=== PATIENT | female | born 1975 | race Caucasian/White ===

== ENCOUNTER 2017-04-20 11:15 | Inpatient (IN) ==
[2017-04-20] MEDS ORDERED: *HR* HYDROmorphone (PF) 1 MG/ML SYRINGE IVP PRN (12:41)
[2017-04-20] MEDS ORDERED: Ondansetron 4 MG/2 ML VIAL IVP PRN (12:42)
[2017-04-20] MEDS ORDERED: *HR* Promethazine 25 MG/ML VIAL IVP PRN (12:42)
[2017-04-20] MEDS: 0.9 % Sodium Chloride 1,000 ML IVC SCH ×2 (12:56→21:06)
[2017-04-20] MEDS ORDERED: Naloxone 0.4 MG/ML INJ IVP PRN (13:02)
[2017-04-20] MEDS ORDERED: *HR* OxyCODONE Immed Rel 5 MG TABLET PO PRN (13:02)
--- NOTE | 2017-04-20 13:20 | Internal Med History&Physical ---
Date of Encounter: 04/20/17 Time of Encounter: 13:15 Assessment and Plan (1) Pyelonephritis Current visit: Yes Status: Acute Patient had bilateral ureteral calculi removed yesterday with bilateral ureteral stents placed. She had hydronephrosis and UTI. Today with increased pain, nausea, vomiting, and increased WBC count. IV rocephin daily. IV fluids 0.9NS at 125mL/hr Consulted Urology. (2) Nausea and vomiting Current visit: Yes Status: Acute Patient reports nausea and vomiting since yesterday, unable to keep anything down. Likely secondary to UTI and bilateral ureteral stent placement yesterday. CT abdomen just showed interval placement of bilateral ureteral stents. clear liquid diet, advance as tolerated. IV fluids 0.9NS at 125mL/hr zofran and phenergan PRN for nausea. Qualifiers: Vomiting type: bilious vomiting Qualified Code(s): R11.14 - Bilious vomiting (3) Abdominal pain Current visit: Yes Status: Acute Patient reporting bilateral flank pain radiating around to her abdomen. She is diffusely tender. cT of abdomen and pelvis shows interval placement of ureteral stents, no calculus and no hydronephrosis. PRN oxycodone and dilaudid for pain Narcan prn for respiratory depression. Qualifiers: Abdominal location: lower abdomen, unspecified Qualified Code(s): R10.30 - Lower abdominal pain, unspecified (4) DVT prophylaxis Current visit: Yes Status: Acute sequential compression devices. Internal Medicine - H&P: HPI Chief complaint: N/V/ abdominal pain Admitted From: Hospital to Hospital Transfer Plans for Post Hospital Care: Home History of present illness: Ms. Gil is a 42 year old female , hyperlipidemia, fibromyalgia, history of kidney stones presented to the emergency department today with complaints of nausea, vomiting, abdominal pain after undergoing bilateral kidney stone extraction and bilateral ureteral stent placement yesterday as an outpatient. Patient reports that her pain has been worsening over time, she describes it as severe, constant, cramping and sharp pain, she states that it was worse on her left yesterday but now it is worse on the right. Pain medicine given in [facility] relieved the pain temporarily. Patient also reports nausea and vomiting and inability to keep anything down. She reports headache, denies any lightheadedness chest pain, palpitations, shortness of breath. She reports mild mild bilateral feet swelling. She reports subjective fever, chills and sweats. Evaluation in the [facility] revealed elevated white blood cell count of 21.5. Creatinine was mildly elevated at 1.19. Lactate was normal at 1.4. Abdomen and pelvis CT showed interval placement of bilateral ureteral stents, no ureteral calculus and no hydronephrosis. On exam, patient alert and oriented , appears in distress due to pain. Heart is regular rate and rhythm, lungs are clear bilaterally to auscultation. Abdomen is soft, diffusely tender to palpation. Past Med Surg Social Fam HX - Past Medical History Medical history: fibromyalgia, hyperlipidemia, kidney stones, migraine Psychiatric history: anxiety, depression - Past Surgical History Surgical History: appendectomy - Social History Smoking Status: Never smoker Smokeless Tobacco Status: No Alcohol use: none Drug use: none - Family History Son Age: 18 Living Status: Still Living Hx Family Cardiac Disorders: No Hx Family Respiratory Disorders: No Hx Family Cancer: No Hx Family GI Disorders: No Hx Family Genitourinary Disorders: No Hx Family Endocrine Disorder: No Hx Family Musculoskeletal Disorders: No Hx Family Neuromuscular Disorders: No Hx Family Neurologic Disorders: No Hx Family HEENT Disorders: No Hx Family Autoimmune Disorders: No Hx Family Reproductive Disorders: No Hx Family Psychosocial Disorders: No Hx Family Medical Disorders: No Internal Medicine - H&P: Meds Propranolol LA (24 HR) [Inderal LA] 80 mg PO DAILY 04/29/15 [History] raNITIdine HCl [Ranitidine HCl] 150 mg PO BID 04/29/15 [History] Cyclobenzaprine HCl 10 mg PO TID 08/10/16 [History] Simvastatin [Zocor] 20 mg PO QPM 08/10/16 [History] Trazodone HCl 100 mg PO HS 08/10/16 [History] Nitrofurantoin Monohyd/M-Cryst [Macrobid 100 mg Capsule] 100 mg PO BID #20 capsule 04/17/17 [Rx] OxyCODONE/APAP 5/325 [Percocet 5/325 MG] 1 each PO Q6HR PRN #20 tablet 04/17/17 [Rx] Promethazine [Phenergan] 25 mg PO Q6HR #20 tablet 04/17/17 [Rx] Phenazopyridine HCl [Pyridium] 200 mg PO TIDAC PRN #20 tab 04/19/17 [Rx] Tramadol HCl [Ultram] 50 mg PO QID PRN #20 tab 04/19/17 [Rx] Allergies hydrocodone [From Vicodin] Allergy (Verified 04/17/17 06:18) Hives latex Allergy (Verified 04/17/17 06:18) Hives Sulfa (Sulfonamide Antibiotics) Allergy (Verified 04/17/17 06:18) Hives All Systems PM: A 10-system review of systems was performed and is negative for pertinent findings except as documented above in the HPI. - Constitutional Constitutional: chills, fever(s), weakness, no night sweats - EENT Eyes: no change in vision, no discharge, no pain, no photophobia Ears: no ear discharge, no ear pain, no tinnitus Nose, mouth and throat: no dysphagia, no nasal discharge, no neck pain, no sore throat - Cardiovascular Cardiovascular ROS IM: no chest pain, no diaphoresis, no dyspnea, no lightheadedness, no palpitations, no syncope - Respiratory Respiratory: no cough, no dyspnea, no wheezing, no excessive phlegm production - Gastrointestinal Gastrointestinal: abdominal pain, constipation, nausea, vomiting, no diarrhea, no hematemesis, no hematochezia, no melena - Genitourinary Genitourinary: dysuria, flank pain, hematuria, no change in urinary stream - Musculoskeletal Musculoskeletal ROS IM: no numbness, no tingling - Integumentary Integumentary IM: no rash, no unusual bruising - Neurological Neurological ROS: no confusion, no convulsions, no focal weakness, no numbness, no tingling, no tremor(s) - Hematologic/Lymphatic Hematologic/Lymphatic: no easy bruising - Constitutional Vitals: Temp Pulse Resp BP Pulse Ox 97.4 F L 83 18 146/80 97 04/20/17 13:13 04/20/17 13:13 04/20/17 13:13 04/20/17 13:13 04/20/17 13:13 General appearance: Present: mild distress, A&O X 3, pleasant - Head Head exam: Present: atraumatic, normocephalic - Eye Eye exam: Present: PERRL, conjuntiva pink, sclera anicteric Pupils: Present: PERRL - Neck Neck exam general surgery: Present: supple, trachea midline. Absent: lymphadenopathy - Respiratory Respiratory exam: Present: CTAB. Absent: accessory muscle use, rales, rhonchi, wheezes - Cardiovascular Cardiovascular exam: Present: RRR, +S1, +S2. Absent: diastolic murmur, gallop, rubs, systolic murmur - GI/Abdominal GI/Abdominal exam: Present: normal bowel sounds, soft, tenderness, no peritoneal signs. Absent: distended - Extremities Exam Extremities exam: Present: warm, radial pulses palpable and symetrical. Absent : calf tenderness, cyanotic, pedal edema - Neurological Exam Neurological exam: Present: CN II-XII intact, oriented X3, no focal deficits. Absent: facial droop, speech deficit - Skin Skin exam: Present: dry, intact Internal Med - H&P Results - Labs Labs: Labs from [facility]: WBC 21.5 Hgb 12.8 Hct 38.4 Plt 440 Na 136 K 4.5 Cl 105 CO2 20 BUN 12 Cr 1.19 Glu 105
--- NOTE | 2017-04-20 16:09 | Event Note ---
Date of Encounter: 04/20/17 Time of Encounter: 16:05 I have personally performed a face to face evaluation on this patient and I discussed the assessment and plan with the nurse practitioner. I have reviewed and agree with the documented care plan. History and Exam by me shows: Ms. Gil is a 42 year old female , hyperlipidemia, fibromyalgia, history of kidney stones presented to the emergency department today with complaints of nausea, vomiting, abdominal pain after undergoing bilateral kidney stone extraction and bilateral ureteral stent placement yesterday as an outpatient. Patient reports that her pain has been worsening over time, she describes it as severe, constant, cramping and sharp pain, she states that it was worse on her left yesterday but now it is worse on the right. Pain medicine given in [place] [facility] relieved the pain temporarily. Patient also reports nausea and vomiting and inability to keep anything down. She reports headache, denies any lightheadedness chest pain, palpitations, shortness of breath. She reports mild mild bilateral feet swelling. She reports subjective fever, chills and sweats. Evaluation in the [place] ED revealed elevated white blood cell count of 21.5. Creatinine was mildly elevated at 1.19. Lactate was normal at 1.4. Abdomen and pelvis CT showed interval placement of bilateral ureteral stents, no ureteral calculus and no hydronephrosis. Gen: A, A, O x3 Abd: soft, mild lower abdomen pain Back: Positive Rt CVA tenderness 1. SIRS with UTI 2. Acute Rt pyelonephritis Pt does meet SIRS criteria with leukocytosis and source of inf as UTI cont empirical abx Rocephin cont IV fluids and IV analgesics 3. s/p ureter stents b/l 4. S/p b/l renal stone extraction POD # 1 stable stents will consult urologist for f/u care
[2017-04-20] MEDS: *HR* HYDROmorphone (PF) 1 MG/ML SYRINGE IVP PRN ×3 (16:11→22:58)
[2017-04-20] MEDS: traZODone 50 MG TABLET PO SCH (21:07)
[2017-04-20] MEDS: Famotidine 20 MG TABLET PO SCH (21:07)
[2017-04-20] MEDS: Propranolol LA (24 HR) 80 MG CAP.SA.24H PO SCH (22:58)
[2017-04-21] MEDS: *HR* HYDROmorphone (PF) 1 MG/ML SYRINGE IVP PRN (04:21)
[2017-04-21] MEDS: 0.9 % Sodium Chloride 1,000 ML IVC SCH ×2 (04:22→13:17)
[2017-04-21 04:35] LABS: Basophils # 0.1 K/mcL (0.0-0.2); Basophils % 0.6 %; Eosinophils # 0.4 K/mcL (0.0-0.6); Eosinophils % 2.6 %; Hematocrit 37.6 % (35.3-44.9); Hemoglobin 11.8 g/dL (11.5-15.4); Immature Granulocytes % 0.4 % (0-4); Lymphocytes # 4.3 K/mcL (0.6-4.6); Lymphocytes % 27.5 %; Mean Corpuscular HGB Conc 31.4 g/dL (31.6-35.5); Mean Corpuscular Hemoglobin 27.3 pg (28.0-33.3); Mean Corpuscular Volume 86.8 fL (83.0-100.0); Mean Platelet Volume 9.5 fL (9.4-12.4); Monocytes # 1.3 K/mcL (0.0-1.3); Monocytes % 8.2 %; Neutrophils # 9.5 K/mcL (1.6-8.9); Platelet Count 410 K/mcL (140-400); Red Blood Count 4.33 M/mcL (3.82-4.97); Red Cell Distribution Width 13.8 % (11.5-14.5); Segmented Neutrophils % 60.7 %
[2017-04-21 04:46] LABS: BUN/Creatinine Ratio 8 (6-26); Blood Urea Nitrogen 9 mg/dL (7-20); Calcium 8.3 mg/dL (8.6-10.8); Carbon Dioxide 24 mEq/L (19-29); Chloride 109 mEq/L (98-109); Glucose 87 mg/dL (70-99); Osmolality,Calculated 284 (280-300); Potassium 4.1 mEq/L (3.5-4.5); Sodium 138 mEq/L (136-145); eGFR For African Americans > 60 (> 60); eGFR For Non-African Americans 56 (> 60)
--- NOTE | 2017-04-21 07:43 | Urology Progress Note ---
Date of Encounter: 04/21/17 Time of Encounter: 07:39 - Assessment and Plan (1) Flank pain, acute Current Visit: No Status: Acute Assessment and plan: urine culture was negative. despite elevated WBC I do not feel this patient had an infection. based on her symptoms, i strongly suspect ureteral spasms as the cause of her pain. at this point, she is not comfortable with discharge bc she is still dependent on IV meds. will change up pain medications to find a better regimen. I also cautioned pt that removal of the stent tomorrow (which was the plan) may increase her pain as she is likely having persistent ureteral spasms. I recommend keeping stents in place until pain has decreased and is more manageable. Progress Note Subjective: still having pain, pain is less Narrative: still requiring dilaudid every 4 hours for pain. mostly on right side. Objective Initial Vital Signs Temp Pulse Resp BP Pulse Ox 97.4 F L 83 18 146/80 97 04/20/17 13:13 04/20/17 13:13 04/20/17 13:13 04/20/17 13:13 04/20/17 13:13 - General physical appearance Present: no distress - Abdomen Present: soft - Labs 04/21/17 04:00 04/21/17 04:00 Diabetes panel 04/21/17 Range/Units 04:00 Sodium 138 (136-145) mEq/L Potassium 4.1 (3.5-4.5) mEq/L Chloride 109 (98-109) mEq/L Carbon Dioxide 24 (19-29) mEq/L BUN 9 (7-20) mg/dL Creatinine 1.07 (0.57-1.11) mg/dL Glucose 87 (70-99) mg/dL Calcium 8.3 L (8.6-10.8) mg/dL Calcium panel 04/21/17 Range/Units 04:00 Calcium 8.3 L (8.6-10.8) mg/dL Pituitary panel 04/21/17 Range/Units 04:00 Sodium 138 (136-145) mEq/L Potassium 4.1 (3.5-4.5) mEq/L Chloride 109 (98-109) mEq/L Carbon Dioxide 24 (19-29) mEq/L BUN 9 (7-20) mg/dL Creatinine 1.07 (0.57-1.11) mg/dL Glucose 87 (70-99) mg/dL Calcium 8.3 L (8.6-10.8) mg/dL Adrenal panel 04/21/17 Range/Units 04:00 Sodium 138 (136-145) mEq/L Potassium 4.1 (3.5-4.5) mEq/L Chloride 109 (98-109) mEq/L Carbon Dioxide 24 (19-29) mEq/L BUN 9 (7-20) mg/dL Creatinine 1.07 (0.57-1.11) mg/dL Glucose 87 (70-99) mg/dL Calcium 8.3 L (8.6-10.8) mg/dL Consult Discharge Plan - Plan Referrals: Jasmin Funez, SYSTEMS SOFTWARE DESIGNER [Primary Care Provider] -
[2017-04-21] MEDS ORDERED: *HR* HYDROmorphone (PF) 1 MG/ML SYRINGE IVP PRN (07:46)
[2017-04-21] MEDS: Famotidine 20 MG TABLET PO SCH ×2 (08:52→20:17)
[2017-04-21] MEDS: *HR* Belladonna Alkaloids/Opium 60 MG RECTAL SUPPOSITORY RC PRN ×3 (08:52→23:05)
[2017-04-21] MEDS: Propranolol LA (24 HR) 80 MG CAP.SA.24H PO SCH (08:54)
[2017-04-21] MEDS ORDERED: Propranolol LA (24 HR) 80 MG CAP.SA.24H PO SCH (09:00)
--- NOTE | 2017-04-21 09:12 | Internal Med Progress Note ---
Date of Encounter: 04/21/17 Time of Encounter: 09:10 - Assessment and plan (1) Sepsis Current Visit: Yes Status: Ruled-out Assessment and plan: Patient presented with severe flank pain, tachycardia and leukocytosis with recent bilateral ureteral stent placement. She was started on IV antibiotics for possible UTI/pyelonephritis. However, infection is ruled out at this time as her urine culture showed no bacterial growth and her symptoms are more likely due to ureteral spasms from the stent placement. Qualifiers: Sepsis type: sepsis due to unspecified organism Qualified Code(s): A41.9 - Sepsis, unspecified organism (2) Pain due to ureteral stent Current Visit: Yes Status: Acute Assessment and plan: Urology consult appreciated. Started on hyoscyamine and belladonna suppository for ureteral and smooth muscle relaxation. Adjusted pain control medications, continue when necessary IV Dilaudid and oral Percocet. Supportive care. IV hydration. Qualifiers: Encounter type: initial encounter Qualified Code(s): T83.84XA - Pain due to genitourinary prosthetic devices, implants and grafts, initial encounter (3) Fibromyalgia Current Visit: Yes Status: Chronic (4) Migraine Current Visit: Yes Status: Chronic Qualifiers: Migraine type: without aura Status migrainosus presence: without status migrainosus Intractability: not intractable Qualified Code(s): G43.009 - Migraine without aura, not intractable, without status migrainosus (5) Urinary tract infection Current Visit: Yes Status: Ruled-out Assessment and plan: Urine culture shows no bacterial growth. Discontinue antibiotics. Qualifiers: Urinary tract infection type: site unspecified Hematuria presence: without hematuria Qualified Code(s): N39.0 - Urinary tract infection, site not specified - Subjective Interval history: Reports persistent cramping pain in B/L groin and lower abdomen, radiating to her flanks; no nausea, vomiting, fever, chills; no frequency, hematuria. - Constitutional Vitals: Temp Pulse Resp BP Pulse Ox 98.1 F 79 18 112/74 96 04/21/17 07:58 04/21/17 07:58 04/21/17 07:58 04/21/17 07:58 04/21/17 07:58 General appearance: Present: mild distress, A&O X 3, obese, answers questions appropriately - Respiratory Respiratory exam: Present: CTAB. Absent: accessory muscle use, rales, rhonchi, wheezes - Cardiovascular Cardiovascular exam: Present: RRR, +S1, +S2. Absent: diastolic murmur, gallop, rubs, systolic murmur - GI/Abdominal GI/Abdominal exam: Present: normal bowel sounds, soft (diffuse tenderness to deep palpation), no peritoneal signs. Absent: distended, tenderness - Neurological Exam Neurological exam: Present: CN II-XII intact, oriented X3, no focal deficits. Absent: pronater drift, facial droop, speech deficit Internal Medicine: Result - Labs CBC & Chem 7: 04/21/17 04:00 04/21/17 04:00 Labs: Short CBC 04/21/17 Range/Units 04:00 WBC 15.6 H (4.3-11.1) K/mcL Hgb 11.8 (11.5-15.4) g/dL Hct 37.6 (35.3-44.9) % Plt Count 410 H (140-400) K/mcL Neutrophils # 9.5 H (1.6-8.9) K/mcL BMP 04/21/17 04:00 Sodium 138 Potassium 4.1 Chloride 109 Carbon Dioxide 24 BUN 9 Creatinine 1.07 Glucose 87 Calcium 8.3 L Consult Discharge Plan - Plan Referrals: Jasmin Funez, PRECIPITATE WASHER [Primary Care Provider] -
[2017-04-21] MEDS: *HR* OxyCODONE Immed Rel 5 MG TABLET PO PRN ×3 (10:05→20:17)
[2017-04-21] MEDS: Hyoscyamine SL 0.125 MG TAB.SUBL SL PRN (12:21)
[2017-04-21] MEDS: traZODone 50 MG TABLET PO SCH (20:17)
[2017-04-22] MEDS: *HR* OxyCODONE Immed Rel 5 MG TABLET PO PRN ×3 (00:23→11:11)
[2017-04-22 04:39] LABS: Basophils # 0.1 K/mcL (0.0-0.2); Basophils % 0.7 %; Eosinophils # 0.7 K/mcL (0.0-0.6); Eosinophils % 4.8 %; Hematocrit 36.5 % (35.3-44.9); Hemoglobin 11.5 g/dL (11.5-15.4); Immature Granulocytes % 0.2 % (0-4); Lymphocytes # 4.7 K/mcL (0.6-4.6); Mean Corpuscular HGB Conc 31.5 g/dL (31.6-35.5); Mean Corpuscular Hemoglobin 27.5 pg (28.0-33.3); Mean Corpuscular Volume 87.3 fL (83.0-100.0); Mean Platelet Volume 9.5 fL (9.4-12.4); Monocytes # 1.3 K/mcL (0.0-1.3); Monocytes % 9.1 %; Neutrophils # 7.4 K/mcL (1.6-8.9); Platelet Count 393 K/mcL (140-400); Red Blood Count 4.18 M/mcL (3.82-4.97); Red Cell Distribution Width 13.9 % (11.5-14.5); Segmented Neutrophils % 52.2 %
[2017-04-22 04:52] LABS: BUN/Creatinine Ratio 8 (6-26); Blood Urea Nitrogen 8 mg/dL (7-20); Calcium 8.3 mg/dL (8.6-10.8); Carbon Dioxide 26 mEq/L (19-29); Chloride 110 mEq/L (98-109); Glucose 92 mg/dL (70-99); Osmolality,Calculated 288 (280-300); Potassium 3.7 mEq/L (3.5-4.5); Sodium 140 mEq/L (136-145); eGFR For African Americans > 60 (> 60); eGFR For Non-African Americans 58 (> 60)
--- NOTE | 2017-04-22 06:57 | Urology Progress Note ---
Date of Encounter: 04/22/17 Time of Encounter: 06:55 - Assessment and Plan (1) Flank pain, acute Current Visit: No Status: Acute Assessment and plan: Bladder and ureteral spasm has decreased with medication changes. Much more tolerable over the last 24 hours compared to admission. Still dependent on narcotic pain medication. Feels that she can manage symptoms at home with B&O suppository and oxycodone. Outpatient prescription B&O suppository will need to be 30 mg. I do not recommend removal of the stents today as she still has acute symptoms. Need to wait a few days for her symptoms to improve. Patient will remove stents at home as instructed. Okay to follow up in a few weeks with urology or when necessary sooner. White blood cell count still elevated but this is likely reactive rather than infectious. Keep patient on outpatient antibiotics for 1 week Progress Note Subjective: feels better, still having pain Objective Initial Vital Signs Temp Pulse Resp BP Pulse Ox 97.4 F L 83 18 146/80 97 04/20/17 13:13 04/20/17 13:13 04/20/17 13:13 04/20/17 13:13 04/20/17 13:13 - General physical appearance Present: well developed, no distress - Psychiatric Present: oriented to time, oriented to person, oriented to place - Labs 04/22/17 03:50 04/22/17 03:50 Diabetes panel 04/22/17 Range/Units 03:50 Sodium 140 (136-145) mEq/L Potassium 3.7 (3.5-4.5) mEq/L Chloride 110 H (98-109) mEq/L Carbon Dioxide 26 (19-29) mEq/L BUN 8 (7-20) mg/dL Creatinine 1.03 (0.57-1.11) mg/dL Glucose 92 (70-99) mg/dL Calcium 8.3 L (8.6-10.8) mg/dL Calcium panel 04/22/17 Range/Units 03:50 Calcium 8.3 L (8.6-10.8) mg/dL Pituitary panel 04/22/17 Range/Units 03:50 Sodium 140 (136-145) mEq/L Potassium 3.7 (3.5-4.5) mEq/L Chloride 110 H (98-109) mEq/L Carbon Dioxide 26 (19-29) mEq/L BUN 8 (7-20) mg/dL Creatinine 1.03 (0.57-1.11) mg/dL Glucose 92 (70-99) mg/dL Calcium 8.3 L (8.6-10.8) mg/dL Adrenal panel 04/22/17 Range/Units 03:50 Sodium 140 (136-145) mEq/L Potassium 3.7 (3.5-4.5) mEq/L Chloride 110 H (98-109) mEq/L Carbon Dioxide 26 (19-29) mEq/L BUN 8 (7-20) mg/dL Creatinine 1.03 (0.57-1.11) mg/dL Glucose 92 (70-99) mg/dL Calcium 8.3 L (8.6-10.8) mg/dL Consult Discharge Plan - Plan Referrals: Jasmin Funez, BULK PICKER [Primary Care Provider] -
[2017-04-22] MEDS: Propranolol LA (24 HR) 80 MG CAP.SA.24H PO SCH (08:44)
[2017-04-22] MEDS: Famotidine 20 MG TABLET PO SCH (08:44)
[2017-04-22] MEDS: *HR* Belladonna Alkaloids/Opium 60 MG RECTAL SUPPOSITORY RC PRN (08:52)
[2017-04-22 11:58] VITALS: BP 114/72
--- NOTE | 2017-04-22 13:09 | Discharge Summary ---
Date of Encounter: 04/22/17 Time of Encounter: 11:45 - Discharge Diagnosis (1) Sepsis Priority: Primary Status: Ruled-out Qualifiers: Sepsis type: sepsis due to unspecified organism Qualified Code(s): A41.9 - Sepsis, unspecified organism (2) Pain due to ureteral stent Priority: Primary Status: Acute Qualifiers: Encounter type: initial encounter Qualified Code(s): T83.84XA - Pain due to genitourinary prosthetic devices, implants and grafts, initial encounter (3) Fibromyalgia Priority: Secondary Status: Chronic (4) Migraine Priority: Secondary Status: Chronic Qualifiers: Migraine type: without aura Status migrainosus presence: without status migrainosus Intractability: not intractable Qualified Code(s): G43.009 - Migraine without aura, not intractable, without status migrainosus (5) Urinary tract infection Priority: Primary Status: Ruled-out Qualifiers: Urinary tract infection type: site unspecified Hematuria presence: without hematuria Qualified Code(s): N39.0 - Urinary tract infection, site not specified - Discharge Medications Prescriptions: Belladonna Alkaloids/Opium [B + O] 30 mg RC Q6HR PRN #10 PRN Reason: ureteral spasm OxyCODONE Immed Rel [Roxicodone 5 MG] 10 mg PO Q6H PRN #20 tab PRN Reason: Pain after B&O suppository Home Medications: Propranolol LA (24 HR) [Inderal LA] 80 mg PO DAILY 04/29/15 [History] raNITIdine HCl [Ranitidine HCl] 150 mg PO BID 04/29/15 [History] Cyclobenzaprine HCl 10 mg PO BID PRN 08/10/16 [History] Simvastatin [Zocor] 20 mg PO QPM 08/10/16 [History] Trazodone HCl 100 mg PO HS 08/10/16 [History] Nitrofurantoin Monohyd/M-Cryst [Macrobid 100 mg Capsule] 100 mg PO BID #20 capsule 04/17/17 [Rx] Promethazine [Phenergan] 25 mg PO Q6HR #20 tablet 04/17/17 [Rx] Phenazopyridine HCl [Pyridium] 200 mg PO TIDAC PRN #20 tab 04/19/17 [Rx] Tramadol HCl [Ultram] 50 mg PO QID PRN #20 tab 04/19/17 [Rx] Cranberry 500 mg PO QPM 04/20/17 [History] Linaclotide [Linzess] 290 mcg PO QPM 04/20/17 [History] Vitamin B Complex [B Complex] 1 tab PO QPM 04/20/17 [History] Belladonna Alkaloids/Opium [B + O] 30 mg RC Q6HR PRN #10 04/22/17 [Rx] OxyCODONE Immed Rel [Roxicodone 5 MG] 10 mg PO Q6H PRN #20 tab 04/22/17 [Rx] Allergies/Adverse Reactions: Allergies ciprofloxacin [From Cipro] Allergy (Verified 04/20/17 17:08) Hives Sulfa (Sulfonamide Antibiotics) Allergy (Verified 04/17/17 06:18) Hives hydrocodone [From Vicodin] Adverse Reaction (Verified 04/20/17 17:08) Itching latex Adverse Reaction (Verified 04/20/17 17:08) Itching Date of admission: 04/20/17 13:02 Primary care physician: Jasmin Funez CNP Consults: 04/20/17 13:11 Consult to Urology [CONS] Routine Consulting Provider: Urology Susana Reason for Consult: 42F with bilateral ureteral stents placed yesterday for bilateral ureteral stones, here with intractible pain, N/V, elevated WBC Call Completed: Yes Discharging clinician: Kristi Mills Anticipated date of discharge: 04/22/17 - Patient Status Disposition: Home, Self-Care Condition: Good Functional capacity at discharge: independent ambulation Overall status at discharge: patient is progressing back to baseline - Discharge Instructions Follow Up With: Naomy Dudley CNP [Advanced Practice Nurse] - 04/29/17 12:30 pm Sujit Hicks MD [Partnered Physician] - 05/06/17 10:00 am Forms: Inpatient Work/School Release - Diet and Activity Activity: increase activity as tolerated Diet: regular diet Hospital course: Ms. Gil is a 42 year old female with recent bilateral ureteral stent placement for ureteral stones, 2 days prior to this admission, is admitted with worsening bilateral loin to groin pain. She was noted to have tachycardia and leukocytosis and was started on empiric IV antibiotics for possible UTI/ pyelonephritis. CT abdomen/pelvis showed patent ureter extensive no evidence of pyelonephritis. Urology was consulted who adjusted her pain medications and started patient on belladonna/opium suppository along with when necessary IV Dilaudid for appropriate pain control. Her pain is thought to be due to ongoing ureteral spasms and sepsis is less likely. Urine culture showed no bacterial growth. Patient is doing well today, her pain is significantly improved and she is medically stable for discharge home with oral pain medications and outpatient urology follow-up. - Time Spent with Patient Total time spent providing and/or coordinating discharge services: Greater than 30 minutes (40 min) - Constitutional Vitals: Temp Pulse Resp BP Pulse Ox 97.9 F 86 18 114/72 92 04/22/17 11:25 04/22/17 11:25 04/22/17 11:25 04/22/17 11:25 04/22/17 11:25 General appearance: Present: A&O X 3, obese, answers questions appropriately - Respiratory Respiratory exam: Present: CTAB. Absent: accessory muscle use, rales, rhonchi, wheezes - Cardiovascular Cardiovascular exam: Present: RRR, +S1, +S2. Absent: diastolic murmur, gallop, rubs, systolic murmur
[2017-04-22] MEDS: Hyoscyamine SL 0.125 MG TAB.SUBL SL PRN (14:14)
== END 2017-04-22 14:41 | disposition home or self-care (01) | DRG 699 ==
LOC: 3ANU
PROVIDERS: ADMIT Family Medicine; ATTEND Internal Medicine